=== PATIENT | male | born 1945 | race Native Hawaiian/Other Pacific Islander ===

== ENCOUNTER 2021-04-13 11:52 | Emergency (ER) | payer OTHER ==
[~2021-04-13] VITALS: Ht 182.9 cm; Wt 88.0 kg
[2021-04-13 12:00] VITALS: BP 159/86; TEMP 97.7
[2021-04-13 12:35] LABS: PLATELET COUNT 147 K/uL (142-355)
[2021-04-13 12:43] LABS: POTASSIUM 3.9 mmol/L (3.6-5.2)
[2021-04-13] MEDS ORDERED: MUPIROCIN21 EX (15:06)
[2021-04-13] MEDS ORDERED: QUETIAPINE50 MG PO (15:06)
[2021-04-13] MEDS ORDERED: SEROQUEL100 MG PO (15:07)
[2021-04-13] MEDS ORDERED: XARELTO20 MG PO (15:09)
[2021-04-13] MEDS ORDERED: ALLO300T23 PO (15:10)
[2021-04-13] MEDS ORDERED: AMMONIUM LAC12 % EX (15:10)
[2021-04-13] MEDS ORDERED: DONEPEZIL HYDRO10 M1 PO (15:11)
[2021-04-13] MEDS ORDERED: LEVOCETIRIZINE D5 MG PO (15:11)
[2021-04-13] MEDS ORDERED: MEMA5TAB PO (15:12)
[2021-04-13] MEDS ORDERED: MELATONIN5 M2 PO (15:12)
[2021-04-20] MEDS ORDERED: MEMA5TAB PO (09:32)
[2021-04-20] MEDS ORDERED: OLANZAPINE5 MG PO (09:32)
[2021-04-20] MEDS ORDERED: CITA20TA2 PO (09:33)
[2021-04-20] MEDS ORDERED: DONE5TAB PO (09:33)
== END 2021-04-13 13:21 | disposition still patient (30) ==
LOC: ED 11:52
PROVIDERS: Emergency Medicine
DX: G30.8 Other Alzheimer's disease (principal); F02.80 Dementia in other diseases classified elsewhere, unspecified severity, without behavioral disturbance, psychotic disturbance, mood disturbance, and anxiety; R41.0 Disorientation, unspecified; Z11.52 Encounter for screening for COVID-19; Z04.6 Encounter for general psychiatric examination, requested by authority
CPT/HCPCS: 80053; 85027; 87635; 93005; 99283; J1630; J2060; U0003